=== PATIENT | female | born 1995 | race Caucasian/White ===

== ENCOUNTER 2024-08-28 08:02 | Emergency (ER) | payer OTHER, SELFPAY ==
--- NOTE | 2024-08-28 08:06 | ED_ITS ---
HPI - Dental/Oral General Chief complaint: Dental/Oral Stated complaint: tooth pain Time Seen by Provider: 08/28/24 08:06 Source: patient, RN notes reviewed and old records reviewed Mode of arrival: Ambulatory Limitations: no limitations History of Present Illness HPI Narrative: 29-year-old female no reported medical issues presents with complaint of dental pain and swelling. Patient has impacted molar which he states his fractured. She has been following with [facility] she was in process being referred to an packaging machine supplies distributor as they states to close to the nerve for them to remove. Patient states she has been having increasing pain and discomfort. She did complete a course of amoxicillin for 10 days about a week ago. That was helpful for a period of time but has been coming increasingly uncomfortable and having increasing swelling she notes a little bit of foul taste or drainage locally as well. Denies any external swelling no swelling of the tongue lips or airway. No vomiting. No fevers. Patient states no daily medications. Denies any drug allergies. She has been using hot salt water rinses. Related Data Previous Rx's Medication Instructions Recorded amoxicillin 875 mg-potassium 1 tab PO BID #19 tabs 08/28/24 clavulanate 125 mg tablet tramadol 50 mg tablet 50 mg PO Q6H PRN pain #10 tabs 08/28/24 Allergies Allergy/AdvReac Type Severity Reaction Status Date / Time No Known Drug Allergies Allergy Verified 08/28/24 08:32 Review of Systems Review of Systems ROS Unobtainable: All systems reviewed & are unremarkable except as noted in HPI and below Exam Narrative Exam Narrative: GEN: well nourished, well appearing female, alert and oriented x 3, patient appears to be in mild distress. HEENT: Atraumatic, pupils are equal round reactive to light, extraocular movements are intact, nares are clear, TMs are clear with no fluid, there is no conjunctival pallor. Throat is clear without any exudates, erythema, tonsillar enlargement or uvular deviation, patient's lift posterior I bottom molar or tooth number 32 does not appear to have some caries, there is some localized swelling surrounding and some erythema, no facial swelling, no bony tenderness. Normal speech, no swelling of lips tongue or oropharynx. HEART: Regular rate and rhythm without murmur, clicks, rubs. LUNGS:Lungs clear to auscultation, no wheezes, rales, crackles, chest moves symmetrically ABD:bowel sounds normal, soft, non-tender, no guarding, rebound, rigidity, no masses noted, no hepatosplenomegaly MSCL: normal range of motion. normal gait NEURO:CN 2-12 intact, sensation normal. Initial Vital Signs Initial Vital Signs: Vital Signs Temperature 97.9 F 08/28/24 08:12 Pulse Rate 83 08/28/24 08:12 Respiratory Rate 16 08/28/24 08:12 Blood Pressure 141/70 H 08/28/24 08:12 Pulse Oximetry 97 08/28/24 08:12 Oxygen Delivery Method Room Air 08/28/24 08:12 Course Orders Ordered: Discontinued Medications Amoxicillin/Clavulanate Potassium (Amoxicillin/Clav 875/125 Mg) 1 tab PO NOW ONE Stop: 08/28/24 08:24 Last Admin: 08/28/24 08:32 Dose: 1 tab Tramadol HCl (Tramadol 50 Mg Prepack) 1 bottle MISC DIRECTED ONE Stop: 08/28/24 08:24 Last Admin: 08/28/24 08:32 Dose: 1 bottle Vital Signs Vital signs: Vital Signs - 8 hr 08/28/24 08:12 Temperature 97.9 F Pulse Rate 83 Respiratory Rate 16 Blood Pressure 141/70 H Pulse Oximetry 97 Oxygen Delivery Method Room Air MDM - Dental/Oral MDM Narrative Medical decision making narrative: 29-year-old female with known impacted molar possibly fractured following with dentist has been referred to an packaging machine supplies distributor but because she was [facility] through [facility] has been a slow process. Patient has had 1 round of antibiotics she completed about a week ago. She has had increasing pain and swelling and a little bit of foul taste. We will cover patient with oral antibiotic, short course of narcotic pain medication. Discussed can use some topical treatments for the short term. Also reviewed some potential alternative resources for her dental care. Discharge Plan Departure Patient Disposition: Home Clinical Impression: Dental infection Instructions: Tooth Abscess Activity Restrictions/Additional Instructions: Follow up with [facility], there may be some additional resources closer to [place] that may have sliding scale for your dental extraction. You can also try the office of Dr. Alvarez ([facility]) here in [place] at [phone] at [facility] oral and facial surgery. Take oral antibiotics until completed. It maybe helpful to take a probiotic with it. You can take acetaminophen up to a 1000 mg every 6 hours and/or ibuprofen up to 600 mg every 6 hours. If this is inadequate for pain you can take tramadol 1-2 tablets every 6 hours as needed. This medication can make you sleepy do not drive, perform hazardous activities or make any major decisions while taking it. This medication will make you constipated please take a stool softener once to twice daily until stools are soft and regular. Prescription sent to [facility] in [place]. Please return for new swelling of your lips tongue or airway, changes to voice, difficulty with swallowing, vomiting, fevers, rapidly worsening swelling of your face or other new or concerning changes. Prescriptions: New amoxicillin-pot clavulanate 875-125 mg tablet 1 tab PO BID Qty: 19 0RF tramadol 50 mg tablet 50 mg PO Q6H PRN (Reason: pain) Qty: 10 0RF Stand Alone Forms: Patient Portal/API/Survey
[2024-08-28 08:12] VITALS: BP 141/70; PULSE 83; RESP 16; TEMP 36.6; O2SAT 97; BMI 30.9
--- NOTE | 2024-08-28 08:24 | PC.NURSE ---
Pt has [employer]. pt given list of multiple dentists and urgent care dental clinics in the [place] area that take [employer].
[2024-08-28] MEDS: AMOXICILLIN/CLAV 875/125 MG 1 TAB PO (08:32)
[2024-08-28] MEDS: TRAMADOL 50 MG PREPACK 1 BOTTLE MISC (08:32)
== END 2024-08-28 08:39 | disposition home or self-care (01) ==
PROVIDERS: Emergency Provider Emergency Medicine
DX: K04.7 Periapical abscess without sinus (principal)
CPT/HCPCS: 99283

== ENCOUNTER 2024-08-31 18:56 | Emergency (ER) | payer OTHER, SELFPAY ==
[2024-08-31 18:58] VITALS: BP 162/84; PULSE 69; RESP 18; TEMP 36.9; O2SAT 98; BMI 30.9
--- NOTE | 2024-08-31 22:07 | ED.DENTAL ---
HPI - Dental/Oral General Chief complaint: Dental/Oral Stated complaint: Dental Pain Time Seen by Provider: 08/31/24 22:06 Source: patient, RN notes reviewed and old records reviewed Mode of arrival: Family Vehicle Limitations: no limitations History of Present Illness HPI Narrative: 29-year-old female no reported medical issues complaint of dental pain and swelling. Was seen here on 08/28/2024 by myself for pain has a known impacted molar which states is fractured following with [facility] has been referred to an tile sprayer but has been waiting for some time, she has since been able to schedule visit but it was a month from now in [place]. Had completed a course of amoxicillin prior to her last visit. Patient was prescribed Augmentin and tramadol here at that visit. She has been taking these but still having significant pain. Patient states no fevers. No swelling of her airway. She feels like that has continued swelling around the tooth, does not appreciate any new swelling of the face, no new redness, states sometimes there is a foul taste in the morning but not throughout the day. She has not noticed any other drainage. She notes pain radiates up towards her ear cheek and down her jaw. No other daily medications. No known drug allergies reported. Related Data Previous Rx's Medication Instructions Recorded amoxicillin 875 mg-potassium 1 tab PO BID #19 tabs 08/28/24 clavulanate 125 mg tablet tramadol 50 mg tablet 50 mg PO Q6H PRN pain #10 tabs 08/28/24 oxycodone 5 mg tablet 5 mg PO QID PRN pain #10 tabs 08/31/24 Allergies Allergy/AdvReac Type Severity Reaction Status Date / Time No Known Drug Allergies Allergy Verified 08/28/24 08:32 Review of Systems Review of Systems ROS Unobtainable: All systems reviewed & are unremarkable except as noted in HPI and below Exam Narrative Exam Narrative: GEN: well nourished, well appearing female, alert and oriented x 3, patient appears to be in mild distress. HEENT: Atraumatic, pupils are equal round reactive to light, extraocular movements are intact, nares are clear, TMs are clear with no fluid, there is no conjunctival pallor. Throat is clear without any exudates, erythema, tonsillar enlargement or uvular deviation, patient's left posterior molar or tooth Number 32 does not appear to have caries, there some localized swelling and erythema there was no fluctuance or drainable abscess, no facial swelling no warmth, no bony tenderness. Normal speech with notes swelling of lips tongue or oropharynx. HEART: Regular rate and rhythm without murmur, clicks, rubs. LUNGS:Lungs clear to auscultation, no wheezes, rales, crackles, chest moves symmetrically ABD:bowel sounds normal, soft, non-tender, no guarding, rebound, rigidity, no masses noted, no hepatosplenomegaly MSCL: Non-tender, no muscle atrophy, muscles strength 5/5 upper and lower extremities, full range of motion, normal gait NEURO:CN 2-12 intact, sensation normal Initial Vital Signs Initial Vital Signs: Vital Signs Temperature 98.5 F 08/31/24 18:58 Pulse Rate 69 08/31/24 18:58 Respiratory Rate 18 08/31/24 18:58 Blood Pressure 162/84 H 08/31/24 18:58 Pulse Oximetry 98 08/31/24 18:58 Oxygen Delivery Method Room Air 08/31/24 18:58 Course Orders Ordered: Discontinued Medications Ketorolac Tromethamine (Ketorolac 30 Mg/Ml Vial) 30 mg IM NOW ONE Stop: 08/31/24 22:19 Last Admin: 08/31/24 22:31 Dose: 30 mg Documented By: ROGER Oxycodone/Acetaminophen (Oxycodone/Apap 5/325 Prepack) 1 bottle MISC DIRECTED ONE Stop: 08/31/24 22:19 Last Admin: 08/31/24 22:31 Dose: 1 bottle Documented By: ROGER Vital Signs Vital signs: Vital Signs - 8 hr 08/31/24 18:58 08/31/24 22:41 Temperature 98.5 F Pulse Rate 69 59 L Respiratory Rate 18 14 Blood Pressure 162/84 H 138/75 Pulse Oximetry 98 99 Oxygen Delivery Method Room Air Room Air MDM - Dental/Oral MDM Narrative Medical decision making narrative: 29-year-old female with known impacted molar has set up tile sprayer follow up but it is not for another month. She was currently taking antibiotics but continued to have quite a bit of pain. Discussed changing antibiotics with the patient prefer not to. We will change her pain medication. She was reluctant to have any shots or injections. Discussed return precautions. Patient received a dose of Toradol here in the department. Received a prepack. Discharge Plan Departure Patient Disposition: Home Clinical Impression: Dental infection Activity Restrictions/Additional Instructions: You can take acetaminophen up to a 1000 mg every 6 hours and/or ibuprofen up to 600 mg every 6 hours. If inadequate for pain control you can take oxycodone 1-2 tablets every 6 hours as needed. This medication can make you sleepy do not drive, perform hazardous activities or make any major decisions while taking it. This medication will make you constipated please take a stool softener once to twice daily until stools are soft and regular. Prescription sent to [facility] in [place]. your prepack tonight does have Tylenol in it so do not take extra Tylenol this evening with the Percocet Please return for new swelling of your lips, tongue or airway, changes to voice, difficulty with swallowing, vomiting, fevers sudden increasing swelling of your face or other new or concerning changes. Prescriptions: New oxycodone 5 mg tablet 5 mg PO QID PRN (Reason: pain) Qty: 10 0RF No Action amoxicillin-pot clavulanate 875-125 mg tablet 1 tab PO BID Qty: 19 0RF tramadol 50 mg tablet 50 mg PO Q6H PRN (Reason: pain) Qty: 10 0RF Stand Alone Forms: Patient Portal/API/Survey
[2024-08-31] MEDS: OXYCODONE/APAP 5/325 PREPACK 1 BOTTLE MISC (22:31)
[2024-08-31] MEDS: KETOROLAC 30 MG/ML VIAL IM (22:31)
[2024-08-31 22:41] VITALS: BP 138/75; PULSE 59; RESP 14; O2SAT 99
== END 2024-08-31 22:45 | disposition home or self-care (01) ==
PROVIDERS: Emergency Provider Emergency Medicine
DX: K04.7 Periapical abscess without sinus (principal)
CPT/HCPCS: 96372; 99283; J1885